=== PATIENT | female | born 1940 | race Caucasian/White ===

== ENCOUNTER → 2017-09-04 | Outpatient (CLI) | payer MEDICARE ==
[~2017-09-04] MED LIST: ALB18R INH; AMOX-559 PO; ASC500 PO; AZIT-1 PO; CITA-139 PO; FLAX100042 PO; FLU150 PO; GLUC-283 PO; GUAI120L3 PO; IPRA3AMP21 IH; LEVO-3 PO; LEVO75TA68 PO; NITR-105 PO; OMEP-218 PO; OMEP40CA45 PO; PAR20 PO; PRED-1 PO; PRED20TA6 PO; PROP80CA40 PO; [UNRECOGNIZED DRUG - CODE] PO
== END ==
LOC: LAB 10:53
PROVIDERS: ATTEND Nurse Practitioner Primary Care
DX: N39.0 Urinary tract infection, site not specified (principal); B96.20 Unspecified Escherichia coli [E. coli] as the cause of diseases classified elsewhere; R30.0 Dysuria
CPT/HCPCS: 81001; 87077; 87088; 87186

== ENCOUNTER 2017-10-23 03:49 | Day surgery (SDC) | payer MEDICARE ==
[~2017-10-23] VITALS: Ht 172.7 cm; Wt 87.1 kg
[2017-10-23] MEDS ORDERED: LIDOCAINE/SOD BICARB 8.4% SYR ID ONE (07:15)
[2017-10-23] MEDS ORDERED: NORMOSOL R SOLN(*) 1000 ML BAG 1,000 ML IV PRN (07:15)
[2017-10-23] MEDS ORDERED: MIDAZOLAM 2 MG/2 ML VIAL IVP ONE (07:15)
[2017-10-23 11:31] VITALS: BP 135/83
[2017-10-23] MEDS ORDERED: LIDOCAINE MPF 1% 5 ML VIAL ONE (12:48)
[2017-10-23] MEDS ORDERED: PROPOFOL EMUL(*) 10MG/ML 20 ML 40 ML ONE (12:48)
[2017-10-23] MEDS ORDERED: PROPOFOL EMUL(*) 10MG/ML 20 ML 20 ML ONE (13:24)
[2017-10-23 13:50] VITALS: BP 106/77
[2017-10-23 14:00] VITALS: BP 102/66
[2017-10-23 14:19] VITALS: BP 110/73
[2017-10-23 14:23] VITALS: BP 118/74
== END 2017-10-23 14:55 | disposition home or self-care (01) ==
LOC: OR 03:49
PROVIDERS: ATTEND Internal Medicine
DX: Z12.11 Encounter for screening for malignant neoplasm of colon (principal); K57.30 Diverticulosis of large intestine without perforation or abscess without bleeding
CPT/HCPCS: 00812; G0105; J2001; J2704

== ENCOUNTER → 2017-12-22 | Outpatient (CLI) | payer MEDICARE | LOC: LAB 11:07 | PROVIDERS: ATTEND Nurse Practitioner Family | DX: E03.9 Hypothyroidism, unspecified (principal) | CPT/HCPCS: 36415; 84443 ==

== ENCOUNTER → 2018-01-18 | Outpatient (CLI) | payer MEDICARE ==
[~2018-01-18] MED LIST changes: -CITA-139 PO; +CITA-145 PO
--- NOTE | 2018-01-18 13:54 | RADIOLOGY IMAGING REPORT ---
FACILITY: [facility] PATIENT NAME: Otilia Dhaliwal : 1940 MR: [id number] V: [id number] EXAM DATE: ORDERING PHYSICIAN: JAYLEN MONTES DE OCA TECHNOLOGIST: Location: [facility] - [place] Patient: Otilia Dhaliwal : 1940 Visit/Account:[id number] Date of Sevice: 01/18/2018 DEXA Scan HISTORY: Asymptomatic postmenopausal state. COMPARISON: 04/13/1997 and 04/30/2012. LUMBAR SPINE: The bone mineral density (BMD) measured from L1-L4 correlates with a Z-score of +0.7 and a T-score of -0.3 which is normal as defined by the World Health Organization. The corresponding risk of fractur e in the lumbar spine is not increased compared with a young adult reference population. This value has decreased by 0.2 % since the prior study. More than 5% change is considered significant. HIP: Bone mineral density (BMD) measured in the left femoral neck region correlates with a Z-score of -1.0 and a T-score of -2.4 which is compatible with osteopenia as defined by the World Health Organizatio n. The corresponding risk of fracture in the hip is increased 4-6 times compared with a young adult reference population. This value in the total hip has decreased by 9.1 % since the prior study. More than 5% change is considered significant. Bone mineral density (BMD) measured in the left Femoral Neck region measures 0.697 g/cm2. IMPRESSION: 1. Lumbar spine: Normal. There has been no significant change in the bone mineral density since e previous exam. 2. Left Femoral Neck: Compatible with osteopenia. There has been significant decrease in the bone mineral density since the previous exam. 3. Left Femoral Neck: Bone Mineral Density is 0.697 g/cm2 The next DEXA scan of this patient should include the following sites: L1-L4 and left hip. FRAX? WHO Fracture Risk Assessment Tool link: <http://www.shef.ac.uk/FRAX/tool.jsp?[email or web address]> PLEASE NOTE: 1) The World Health Organization defines low BMD as follows: T-score Normal > -1 Osteopenia < -1 and > -2.5 Osteoporosis < -2.5 without fractures Established osteoporosis < -2.5 with fractures 2) In general, you may wish to consider: Diagnosis Treatment Follow-up DEXA Normal BMD Prevention 2-3 years Osteopenia Prevention/therapy 1-2 years Osteoporosis Therapy Yearly 3) Fracture risk estimated from the T-score is more accurate for vertebral fractures (often spontane ous) than for hip fractures. Report Dictated By: Alysia Ocampo MD at 01/18/2018 1:49 PM Report E-Signed By: Alysia Ocampo MD at 01/18/2018 1:51 PM WSN:[id number]
== END ==
LOC: RAD 03:17
PROVIDERS: ATTEND Nurse Practitioner Family
DX: Z13.820 Encounter for screening for osteoporosis (principal); M85.88 Other specified disorders of bone density and structure, other site; Z78.0 Asymptomatic menopausal state
CPT/HCPCS: 77080

== ENCOUNTER → 2018-02-24 | Outpatient (CLI) | payer MEDICARE ==
[~2018-02-24] MED LIST changes: +FLUO-177 PO; +LOR1 PO; +PHEN200T32 PO; +SULF-198 PO
== END ==
LOC: LAB 10:40
PROVIDERS: ATTEND Nurse Practitioner Primary Care
DX: R30.0 Dysuria (principal); B96.89 Other specified bacterial agents as the cause of diseases classified elsewhere
CPT/HCPCS: 81001; 87077; 87088; 87186

== ENCOUNTER → 2019-04-19 | Outpatient (CLI) | payer MEDICARE ==
[~2019-04-19] MED LIST changes: +ATOR20TA65 PO; +FLUO40CA67 PO; +IPRA3AMP10 IH; -IPRA3AMP21 IH; +LISI-362 PO; +LISI20TA29 PO; +PNEU0.5D3 IM; +PROP40TA45 PO
== END ==
LOC: LAB 10:56
PROVIDERS: ATTEND Nurse Practitioner Family
DX: E83.52 Hypercalcemia (principal)
CPT/HCPCS: 36415; 82306; 83970

== ENCOUNTER → 2019-04-22 | Outpatient (CLI) | payer MEDICARE ==
[~2019-04-22] MED LIST changes: +CEPH-13 PO
--- NOTE | 2019-05-02 10:15 | RADIOLOGY IMAGING REPORT ---
FACILITY: [facility] PATIENT NAME: Otilia Dhaliwal : 1940 MR: [id number] V: [id number] EXAM DATE: ORDERING PHYSICIAN: JAYLEN MONTES DE OCA TECHNOLOGIST: Location[place] [facility] [place] Patient: Otilia Dhaliwal : 1940 Visit/Account:[id number] Date of Sevice: 04/22/2019 DEXA Scan Clinical history: Osteopenia, hypercalcemia. Comparison: DEXA scan from 01/18/2018. LUMBAR SPINE: The bone mineral density (BMD) measured from L1-L4 correlates with a Z-score of 0.6 and a T-score of -0.3 which is normal as defined by the World Health Organization. The corresponding risk of fractur e in the lumbar spine is not increased compared with a young adult reference population. This value has increased by 0.8 % since the prior study. More than 5% change is considered significant. HIP: Bone mineral density (BMD) measured in the Left femoral neck region correlates with a Z-score of -0.6 and a T-score of -2.0 which is consistent with osteopenia as defined by the World Health Organizatio n. The corresponding risk of fracture in the hip is increased 4 times compared with a young adult reference population. The total hip value has increased by 4.9 % since the prior study. More than 5% change is considered significant. Bone mineral density (BMD) measured in the Femoral Neck region measures 0.754 g/cm2. IMPRESSION: 1. Lumbar spine: Normal. There has been no significant change in the bone mineral density since the previous exam. 2. Left femoral neck: Osteopenia. There has been No significant change in the bone mineral density of the total hip since the previous exam. 3. Femoral Neck: Bone Mineral Density is 0.754 g/cm2 The next DEXA scan of this patient should include the following sites: L1-L4 and the left hip. FRAX? WHO Fracture Risk Assessment Tool link: <http://www.shef.ac.uk/FRAX/tool.jsp?[email or web address]> PLEASE NOTE: 1) The World Health Organization defines low BMD as follows: T-score Normal > -1 Osteopenia < -1 and > -2.5 Osteoporosis < -2.5 without fractures Established osteoporosis < -2.5 with fractures 2) In general, you may wish to consider: Diagnosis Treatment Follow-up DEXA Normal BMD Prevention 2-3 years Osteopenia Prevention/therapy 1-2 years Osteoporosis Therapy Yearly 3) Fracture risk estimated from the T-score is more accurate for vertebral fractures (often spontane ous) than for hip fractures. Report Dictated By: Arjun Llanes MD at 04/23/2019 8:22 PM Report E-Signed By: Arjun Llanes MD at 04/23/2019 8:27 PM WSN:[id number]
== END ==
LOC: RAD 06:55
PROVIDERS: ATTEND Nurse Practitioner Family
DX: M85.80 Other specified disorders of bone density and structure, unspecified site (principal)
CPT/HCPCS: 77080